=== PATIENT | female | born 1945 | race Caucasian/White ===

== ENCOUNTER 2021-10-09 08:50 | Inpatient (IN) ==
[2021-10-09 10:56] LABS: Basophils % 0.4 %; Eosinophils % 0.5 %; Hematocrit 41.6 % (35.3-44.9); Hemoglobin 13.6 g/dL (11.5-15.4); Immature Granulocytes % 0.1 % (0-4); Lymphocytes # 1.6 K/mcL (0.6-4.6); Lymphocytes % 21.4 %; Mean Corpuscular HGB Conc 32.7 g/dL (31.6-35.5); Mean Corpuscular Hemoglobin 29.2 pg (28.0-33.3); Mean Corpuscular Volume 89.5 fL (83.0-100.0); Monocytes # 0.6 K/mcL (0.0-1.3); Monocytes % 8.2 %; Neutrophils # 5.3 K/mcL (1.6-8.9); Platelet Count 270 K/mcL (140-400); Red Blood Count 4.65 M/mcL (3.82-4.97); Red Cell Distribution Width 12.9 % (11.5-14.5); Segmented Neutrophils % 69.4 %; White Blood Count 7.6 K/mcL (4.3-11.1)
[2021-10-09 11:05] LABS: Estimated Average Glucose 123 mg/dl; Hemoglobin A1C 5.9 %
[2021-10-09 11:29] LABS: Acetaminophen < 10 mcg/mL (10-20); Alanine Aminotransferase 19 Units/L (7-52); Albumin 4.9 g/dL (3.5-5.7); Albumin/Globulin Ratio 1.7 (1.1-2.2); Alkaline Phosphatase 70 Units/L (34-104); Aspartate Amino Transferase 47 Units/L (13-39); BUN/Creatinine Ratio 27 (6-26); Bilirubin,Direct 0.2 mg/dL (0.0-0.2); Bilirubin,Indirect 0.7 mg/dL (0.0-1.0); Bilirubin,Total 0.9 mg/dL (0.3-1.0); Blood Urea Nitrogen 27 mg/dL (8-23); Carbon Dioxide 28 mEq/L (23-29); Chloride 98 mEq/L (98-107); Cholesterol 206 mg/dL (< 200); Ethanol < 10 mg/dL (Less than 10); Globulin 2.9 g/dL (2.4-3.5); Glucose 98 mg/dL (70-105); HDL Cholesterol 51 mg/dL (40-59); LDL Cholesterol,Calculated 144 mg/dL (< 100); Osmolality,Calculated 291 (280-300); Potassium 3.6 mEq/L (3.5-5.1); Salicylate < 2.5 mg/dL (15.0-30.0); Sodium 138 mEq/L (136-145); Thyroid Stimulating Hormone 1.631 mcIU/mL (0.340-5.600); Total Protein 7.8 g/dL (6.4-8.9); Triglycerides 57 mg/dL (< 150); eGFR For African Americans > 60 (> 60); eGFR For Non-African Americans 53 (> 60)
[2021-10-09 12:08] LABS: Amphetamine Screen,Urine Negative ng/mL (Cutoff=1000); Barbiturate Screen,Urine Negative ng/mL (Cutoff=200); Benzodiazepines Screen,Urine Negative ng/mL (Cutoff=200); Cannabinoid Screen,Urine Negative ng/mL (Cutoff = 50); Cocaine Screen,Urine Negative ng/mL (Cutoff= 300); Opiate Screen,Urine Negative ng/mL (Cutoff=300); Phencyclidine Screen,Urine Negative ng/mL (Cutoff=25)
[2021-10-09 12:14] LABS: Bilirubin,Urine Negative (Negative); Blood,Urine Trace (Negative); Clarity,Urine Clear (Clear); Color,Urine Light-Yellow (Yellow); Glucose,Urine (UA) Normal (Normal); Hyaline Casts,Urine Few per lpf (None Seen); Ketones,Urine 20 mg/dL (Negative); Leukocyte Esterase,Urine Negative (Negative); Nitrite,Urine Negative (Negative); Protein,Urine Trace mg/dL (Neg-Trace); RBC,Urine 0-3 per hpf (0-3); Squamous Epithelial Cell,Urine Few per hpf (None-Few); Urobilinogen,Urine Normal (Normal); WBC,Urine 0-3 per hpf (0-3)
[2021-10-09 17:49] LABS: Influenza A PCR Negative (Negative); Influenza B PCR Negative (Negative); Resp. Syncytial Virus PCR Negative (Negative)
[2021-10-09 18:08] LABS: SARS-CoV-2 by PCR (In House) Negative (Negative)
[2021-10-09] MEDS ORDERED: haloperidoL 5 MG TABLET PO PRN (18:46)
[2021-10-09] MEDS ORDERED: *HR* LORazepam 1 MG TABLET PO PRN (18:46)
[2021-10-09] MEDS ORDERED: Haloperidol Lactate 5 MG/ML VIAL IM PRN (18:46)
[2021-10-09] MEDS ORDERED: *HR* LORazepam 2 MG/ML VIAL IM PRN (18:46)
[2021-10-09] MEDS ORDERED: Acetaminophen 325 MG TABLET PO PRN (18:46)
[2021-10-09] MEDS: hydrOXYzine pamoate 25 MG CAPSULE PO PRN (21:29)
[2021-10-09] MEDS: traZODone 50 MG TABLET PO PRN (21:29)
[2021-10-10] MEDS ORDERED: *HR* LORazepam 0.5 MG TABLET PO ONE (16:30)
[2021-10-10] MEDS: ARIPiprazole 2 MG TABLET PO SCH (20:41)
[2021-10-10] MEDS: hydrOXYzine pamoate 25 MG CAPSULE PO PRN (20:41)
[2021-10-10] MEDS: traZODone 50 MG TABLET PO PRN (20:41)
[2021-10-11] MEDS: Cholecalciferol (D-3) 1,000 UNIT (25MCG) TABLET PO SCH (08:25)
[2021-10-11] MEDS: Losartan/HCTZ 50-12.5 TABLET PO SCH (08:25)
[2021-10-11] MEDS: hydrOXYzine pamoate 25 MG CAPSULE PO PRN (20:20)
[2021-10-11] MEDS: traZODone 50 MG TABLET PO PRN (20:20)
[2021-10-11] MEDS: ARIPiprazole 2 MG TABLET PO SCH (20:20)
[2021-10-12] MEDS: Losartan/HCTZ 50-12.5 TABLET PO SCH (08:42)
[2021-10-12] MEDS: Cholecalciferol (D-3) 1,000 UNIT (25MCG) TABLET PO SCH (08:43)
[2021-10-12] MEDS: ARIPiprazole 2 MG TABLET PO SCH (20:57)
[2021-10-12] MEDS: traZODone 50 MG TABLET PO PRN (20:57)
[2021-10-12] MEDS: hydrOXYzine pamoate 25 MG CAPSULE PO PRN (20:57)
[2021-10-13] MEDS: Losartan/HCTZ 50-12.5 TABLET PO SCH (10:10)
[2021-10-13] MEDS: Cholecalciferol (D-3) 1,000 UNIT (25MCG) TABLET PO SCH (10:10)
[2021-10-13] MEDS: OLANZapine 5 MG TAB.RAPDIS PO SCH (18:42)
[2021-10-13] MEDS: hydrOXYzine pamoate 25 MG CAPSULE PO PRN (21:16)
[2021-10-13] MEDS: traZODone 50 MG TABLET PO PRN (21:16)
[2021-10-14] MEDS: Cholecalciferol (D-3) 1,000 UNIT (25MCG) TABLET PO SCH (10:22)
[2021-10-14] MEDS: Losartan/HCTZ 50-12.5 TABLET PO SCH (10:23)
[2021-10-14] MEDS: OLANZapine 5 MG TAB.RAPDIS PO SCH ×2 (18:39→20:32)
[2021-10-14] MEDS: traZODone 50 MG TABLET PO PRN (20:32)
[2021-10-15] MEDS: Cholecalciferol (D-3) 1,000 UNIT (25MCG) TABLET PO SCH (08:30)
[2021-10-15] MEDS: Losartan/HCTZ 50-12.5 TABLET PO SCH (08:30)
[2021-10-15] MEDS: RisperiDONE-M 1 MG TAB.RAPDIS PO SCH (20:47)
[2021-10-15] MEDS: traZODone 50 MG TABLET PO PRN (20:48)
[2021-10-16] MEDS: Cholecalciferol (D-3) 1,000 UNIT (25MCG) TABLET PO SCH (09:37)
[2021-10-16] MEDS: Losartan/HCTZ 50-12.5 TABLET PO SCH (09:37)
[2021-10-16] MEDS: polyethylene glycoL 3350 17 GM POWD.PACK PO SCH (09:48)
[2021-10-16] MEDS: traZODone 50 MG TABLET PO PRN (20:35)
[2021-10-16] MEDS: hydrOXYzine pamoate 25 MG CAPSULE PO PRN (20:35)
[2021-10-16] MEDS: RisperiDONE-M 1 MG TAB.RAPDIS PO SCH (20:35)
[2021-10-17] MEDS: polyethylene glycoL 3350 17 GM POWD.PACK PO SCH (09:15)
[2021-10-17] MEDS: Cholecalciferol (D-3) 1,000 UNIT (25MCG) TABLET PO SCH (09:17)
[2021-10-17] MEDS: Losartan/HCTZ 50-12.5 TABLET PO SCH (09:17)
[2021-10-17 09:43] VITALS: BP 122/72; PULSE 95; TEMP 97.3; O2SAT 97
== END 2021-10-17 15:55 | disposition home or self-care (01) | DRG 885 ==
LOC: EMEROOARM 08:50 → 1ANU 18:36
PROVIDERS: ADMIT Psychiatry & Neurology Forensic Psychiatry; ATTEND Psychiatry & Neurology Forensic Psychiatry